=== PATIENT | male | born 1955 | race American Indian/Alaskan Native ===

== ENCOUNTER 2020-10-24 20:10 | Emergency (ER) | payer OTHER ==
[2020-10-24] MEDS ORDERED: SODIUM CHLORIDE 0.9% 1000 ML 1,000 ML IV ONE ×2 (20:17→20:56)
--- NOTE | 2020-10-24 20:17 | Emergency Department Report ---
ED Dizziness HPI - General Chief Complaint: Dizziness Stated Complaint: weakness Time Seen by Provider: 10/24/20 20:10 Source: patient, EMS Mode of arrival: Stretcher Limitations: No Limitations - History of Present Illness Initial Comments: Patient is a 65-year-old male presents emergency room with complaints of dizziness and lightheadedness. Patient also complains of being weak. Patient states his symptoms started 3 hours ago. Patient brought in by EMS. Report received of EMS. EMS states that the patient has a cardiac history of MIs and they transmitted EKG. EMS states that he was found to be hypotensive and orthostatic. EMS states that his initial blood pressure was 70 over palp and EMS gave him a liter of fluids and his blood pressure is 110. Patient states he feels a little better after the fluids. EMS states they have not given him aspirin. Prior to arrival received radio report from EMS. Patient denies recent travel. Patient denies recent international travel. Patient denies exposure to the novel coronavirus. Patient denies sick contacts. Patient denies fever and chills. Patient denies cough. Patient denies diar karrie. Patient denies coming in contact with anybody with symptoms of the novel coronavirus. Complaint: dizziness, lightheadedness -: Sudden Timing: sudden onset Description: lightheadedness History of Same: No History of Trauma: No Severity: severe Improves With: remaining still, rest Worsens With: movement, position, exertion Associated Symptoms: malaise, weakness. denies: ataxia, chest pain, confusion, cough, diaphoresis, fever/chills, loss of appetite, rash, seizure, shortness of breath, syncope - Related Data Allergies Allergy/AdvReac Type Severity Reaction Status Date / Time No Known Allergies Allergy Unverified 10/24/20 20:11 ED Review of Systems ROS: Stated complaint: POSS STEMI Other details as noted in HPI Constitutional: denies: chills, fever Eyes: denies: eye pain, eye discharge, vision change ENT: denies: ear pain, throat pain Respiratory: denies: cough, shortness of breath, wheezing Cardiovascular: denies: chest pain, palpitations Endocrine: no symptoms reported Gastrointestinal: denies: abdominal pain, nausea, diarrhea Genitourinary: denies: urgency, dysuria Musculoskeletal: denies: back pain, joint swelling, arthralgia Skin: denies: rash, lesions Neurological: as per HPI. denies: headache, weakness, paresthesias Psychiatric: denies: anxiety, depression Hematological/Lymphatic: denies: easy bleeding, easy bruising ED Past Medical Hx - Past Medical History Previous Medical History?: Yes Hx Hypertension: Yes Hx Heart Attack/AMI: Yes - Surgical History Past Surgical History?: No - Family History Family history: no significant - Social History Smoking Status: Never Smoker Substance Use Type: Alcohol ED Physical Exam - General Limitations: No Limitations General appearance: alert, in no apparent distress - Head Head exam: Present: atraumatic, normocephalic - Eye Eye exam: Present: normal appearance - ENT ENT exam: Present: mucous membranes dry - Neck Neck exam: Present: normal inspection - Respiratory Respiratory exam: Present: normal lung sounds bilaterally. Absent: respiratory distress, wheezes, rales - Cardiovascular Cardiovascular Exam: Present: regular rate, normal rhythm. Absent: systolic m urmur, diastolic murmur, rubs, gallop - GI/Abdominal GI/Abdominal exam: Present: soft, normal bowel sounds - Rectal Rectal exam: Present: deferred - Extremities Exam Extremities exam: Present: normal inspection - Back Exam Back exam: Present: normal inspection - Neurological Exam Neurological exam: Present: alert, oriented X3 - Psychiatric Psychiatric exam: Present: normal affect, normal mood - Skin Skin exam: Present: warm, dry, intact, normal color. Absent: rash ED Course Vital Signs 10/24/20 20:11 Temperature 98.0 F Pulse Rate 75 Respiratory 20 Rate Blood Pressure 100/56 O2 Sat by Pulse 97 Oximetry - Reevaluation(s) Reevaluation #1: Patient states he is feeling much better. Patient denies dizziness. Patient denies lightheadedness. Patient's blood pressure is 101. 10/24/20 21:05 Reevaluation #2: Patient's blood pressures better but still relatively low. Patient's blood pres sure is 96/50. I discussed admission with patient. Patient refused to be admitted. Patient states he is feeling better. He states he wants to leave. I discussed the risk with patient. Patient signed AMA form. Patient left the hospital AGAINST MEDICAL ADVICE. Even though the patient is leaving AGAINST MEDICAL ADVICE, a formal discharge will be given to the patient. I discussed all results and clinical findings with patient. Patient given discharge instructions. Patient voiced understanding of discharge instructions. 10/24/20 21:55 - Consultations Consultation #1: I sent the EKG to Dr. Jang, interventional cardiology. I discussed the case with Dr. Jang. Dr. Jang states that this is not a STEMI and is a normal EKG. 10/24/20 19:56 ED Medical Decision Making - Lab Data Result diagrams: 10/24/20 20:19 10/24/20 20:19 - EKG Data -: EKG Interpreted by Me EKG shows normal: sinus rhythm, axis, intervals, QRS complexes, ST-T waves Rate: normal - Radiology Data Radiology results: report reviewed, image reviewed interpreted by me: Chest x-ray: No pneumonia, no pneumothorax, no foreign body, no osseous finding s, no acute findings CHEST 1 VIEW 10/24/2020 8:04 PM INDICATION / CLINICAL INFORMATION: Lightheadedness/Dizziness. COMPARISON: None available. FINDINGS: SUPPORT DEVICES: None. HEART / MEDIASTINUM: No significant abnormality. LUNGS / PLEURA: No significant pulmonary or pleural abnormality. No pneumothorax. ADDITIONAL FINDINGS: No significant additional findings. IMPRESSION: 1. No acute findings. NONENHANCED CT SCAN OF THE HEAD: INDICATION / CLINICAL INFORMATION: 65 years Male; dizziness. TECHNIQUE: Routine CT head without contrast. All CT scans at this location are performed using CT dose reduction for ALARA by means of automated exposure control. COMPARISON: None. FINDINGS: BRAIN / INTRACRANIAL CONTENTS: No acute hemorrhage, mass effect, midline shift, hydrocephalus, or acute, large territorial infarct. No chronic infarct or focal atrophy. Periventricular low attenuation areas due to chronic small vessel disease; mild to moderate cortical involution; normal medial temporal lobes, brainstem and cerebellar hemispheres CRANIOCERVICAL JUNCTION: No significant abnormality. ORBITS: No significant abnormality of visualized orbits. SINUSES / MASTOIDS: Retention cyst in the right maxillary sinus ADDITIONAL FINDINGS: None. IMPRESSION: No focal parenchymal lesion - Medical Decision Making Patient is a 65-year-old male who presents emergency room with complaints of lightheadedness and dizziness. Patient was brought in by EMS and found to be hypotensive. Patient was given fluids by EMS and and his blood pressure improved. Patient had an EKG and said acute myocardial infarction and was sent to our on-call and eventually fine grader and the fine grader states is a normal EKG and is not a STEMI. Patient had labs done which were essentially unremarkable except for dehydration and renal insufficiency. Patient given fluids in the ER. Patient had a CT scan of the head for dizziness and it was negative for acute finding. Patient had a chest x-ray which was negative for acute findings. I discussed all results with patient. I discussed plan of care with patient and patient refused to be admitted. Patient signed AMA form. Patient voiced understanding of risk. Patient left the hospital AGAINST MEDICAL ADVICE. Even though the patient left AGAINST MEDICAL ADVICE, a formal discharge given to the patient. Critical care time documented due to the multiple reassessments, prolonged time at the bedside, interpretation of diagnostics and labs. - Differential Diagnosis Dizziness, hypotension, dehydration, ACS, electrolyte imbalance, Critical Care Time: Yes Critical care time in (mins) excluding proc time.: 35 Critical care attestation.: If time is entered above; I have spent that time in minutes in the direct care of this critically ill patient, excluding procedure time. Critical Care Time: 35 minutes ED Disposition Clinical Impression: Renal insufficiency, Dehydration, Dizziness, Lactic acid acidosis Hypotension Qualifiers: Hypotension type: unspecified hypotension type Qualified Code(s): I95.9 - Hypotension, unspecified Disposition: DC-07 LEFT AGAINST MED ADVICE Is pt being admited?: No Does the pt Need Aspirin: No Condition: Critical Instructions: Dehydration, Adult, [id number], Rehydration, Adult, Preventing Chronic Kidney Disease Additional Instructions: Patient to follow-up with primary care in 2 to 3 days. Patient to see cardiology in 2 to 3 days. Patient to rest. Patient to increase water. Patient to avoid strenuous exercise or heavy lifting until cleared by cardiology and primary care patient to take Tylenol or ibuprofen as needed for pain. Patient to avoid alcohol.. Patient to return to the ER if condition worsens, changes or new symptoms arise. Referrals: PRIMARY CARE, [Primary Care Provider] - 2-3 Days DIANA WHATLEY MD [Staff Physician] - 2-3 Days Time of Disposition: 21:57
[2020-10-24] MEDS ORDERED: ASPIRIN 325 MG TAB PO ONE (20:18)
[2020-10-24] MEDS ORDERED: SODIUM CHLORIDE 0.9% 1000 ML 0 ML ONE (20:24)
[2020-10-24 20:29] LABS: Basophils % (Auto) 0.6 % (0.0-1.8); Eosinophils # (Auto) 0.1 K/mm3 (0.0-0.4); Eosinophils % (Auto) 1.7 % (0.0-4.3); Hemoglobin 12.5 gm/dl (11.8-15.2); Lymphocytes # (Auto) 1.7 K/mm3 (1.2-5.4); Lymphocytes % (Auto) 21.1 % (13.4-35.0); Mean Corpuscular HGB Conc 33 % (32-34); Mean Corpuscular Volume 98 fl (84-94); Monocytes # (Auto) 0.6 K/mm3 (0.0-0.8); Monocytes % (Auto) 7.1 % (0.0-7.3); Platelet Count 182 K/mm3 (140-440); Red Blood Count 3.87 M/mm3 (3.65-5.03); Red Cell Distribution Width 13.7 % (13.2-15.2)
[2020-10-24 20:46] LABS: Creatine Kinase MB 1.7 ng/mL (0.0-4.0)
[2020-10-24 20:47] LABS: Alanine Aminotransferase 18 units/L (7-56); Albumin 3.8 g/dL (3.9-5); BUN/Creatinine Ratio 14; Blood Urea Nitrogen 19 mg/dL (9-20); Calcium 8.5 mg/dL (8.4-10.2); Hemolysis Index 6
--- NOTE | 2020-10-24 20:49 | XRay Report ---
CHEST 1 VIEW 10/24/2020 8:04 PM INDICATION / CLINICAL INFORMATION: Lightheadedness/Dizziness. COMPARISON: None available. FINDINGS: SUPPORT DEVICES: None. HEART / MEDIASTINUM: No significant abnormality. LUNGS / PLEURA: No significant pulmonary or pleural abnormality. No pneumothorax. ADDITIONAL FINDINGS: No significant additional findings. IMPRESSION: 1. No acute findings. Signer Name: Rolando Carreon MD Signed: 10/24/2020 8:45 PM Workstation Name: [id number]
[2020-10-24] MEDS ORDERED: SODIUM CHLORIDE 0.9% 1000 ML 1,000 ML ONE (20:55)
[2020-10-24] MEDS ORDERED: ASPIRIN 325 MG TAB ONE (20:55)
--- NOTE | 2020-10-24 21:04 | Cat Scan Report ---
NONENHANCED CT SCAN OF THE HEAD: INDICATION / CLINICAL INFORMATION: 65 years Male; dizziness. TECHNIQUE: Routine CT head without contrast. All CT scans at this location are performed using CT dos e reduction for ALARA by means of automated exposure control. COMPARISON: None. FINDINGS: BRAIN / INTRACRANIAL CONTENTS: No acute hemorrhage, mass effect, midline shift, hydrocephalus, or acu te, large territorial infarct. No chronic infarct or focal atrophy. Periventricular low attenuation a reas due to chronic small vessel disease; mild to moderate cortical involution; normal medial tempora l lobes, brainstem and cerebellar hemispheres CRANIOCERVICAL JUNCTION: No significant abnormality. ORBITS: No significant abnormality of visualized orbits. SINUSES / MASTOIDS: Retention cyst in the right maxillary sinus ADDITIONAL FINDINGS: None. IMPRESSION: No focal parenchymal lesion Signer Name: Ellen Dunbar MD Signed: 10/24/2020 9:00 PM Workstation Name: [id number]
[2020-10-24 22:13] VITALS: BP 112/66
== END 2020-10-24 22:12 | disposition left against medical advice (07) ==
LOC: ED 20:10
DX: I95.9 Hypotension, unspecified (principal); N28.9 Disorder of kidney and ureter, unspecified; E86.0 Dehydration; E87.2 Acidosis; R42 Dizziness and giddiness; I10 Essential (primary) hypertension; I25.2 Old myocardial infarction
CPT/HCPCS: 36415; 70450; 71045; 80053; 82140; 82550; 82553; 84484; 85025; 93005; 96360; 99285; J7030; 80320; G0480